=== PATIENT | female | born 1990 | race Asian ===

== ENCOUNTER 2017-10-21 21:08 | Emergency (ER) | payer OTHER ==
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
--- NOTE | 2017-10-22 08:22 | Diagnostic Imaging Report ---
Left wrist 3 views Indication: Trauma Comparison: none Findings: No evidence of acute fracture or dislocation. Growth plates scars of the distal radius and ulna are noted. No focal soft tissue swelling. Impression: No evidence of an acute fracture. In the setting of trauma, if clinical symptoms persist and there is continued concern for an occult fracture, follow up exams in 5-7 days is suggested.
--- NOTE | 2017-10-22 08:24 | Diagnostic Imaging Report ---
Pelvis single view Indication: Trauma Comparison: none Findings: No evidence of acute fracture or dislocation. Minimal degenerative changes of SI joints are noted. Moderate stool is seen throughout the colon. Impression: No evidence of an acute fracture or dislocation. In the setting of trauma, if clinical symptoms persist and there is continued concern for an occult fracture, follow up exams in 5-7 days is suggested.
== END 2017-10-22 00:30 | disposition home or self-care (01) ==
LOC: ER 21:08
DX: M25.532 Pain in left wrist (principal); R10.2 Pelvic and perineal pain
CPT/HCPCS: 72170-TC; 73110-TC-LT; 81025-TC